=== PATIENT | female | born 1965 | race Caucasian/White ===

== ENCOUNTER → 2020-08-10 | Outpatient (CLI) | payer BC ==
[~2020-08-10] MED LIST: CELE200C PO; DESV100T PO; SIMV20TA18 PO; VALS1TAB28 PO; WARF7.5T45 PO
--- NOTE | 2020-08-16 12:09 | RAD ---
DATE: 08/10/2020 EXAM: MAMMO ROSSANA SCREENING BILATERAL HISTORY: Screening COMPARISON: 02/17/2019 This study was interpreted with the benefit of Computerized Aided Detection (CAD). Breast Density: The breast parenchyma shows scattered fibroglandular densities. Breast parenchyma level B. FINDINGS: There is a focal asymmetry in the subareolar left breast at approximately 3:00 suspicious for a dilated duct. There are bilateral benign calcifications. No suspicious mass or suspicious calcification either breast. No architectural distortion. IMPRESSION: Focal asymmetry in the subareolar left breast suspicious for dilated duct. Recommend spot compression CC and MLO views and ultrasound to further evaluate. BI-RADS CATEGORY: 0 INCOMPLETE: NEEDS ADDITIONAL IMAGING EVALUATION AND/OR PRIOR MAMMOGRAMS FOR COMPARISON. RECOMMENDED FOLLOW-UP: Spot compression CC and MLO views and ultrasound of the subareolar left breast focal asymmetry. PQRS compliance statement: Mammography is a sensitive method for finding small breast cancers, but it does not detect them all and is not a substitute for careful clinical examination. A negative mammogram does not negate a clinically suspicious finding and should not result in delay in biopsying a clinically suspicious abnormality. "Our facility is accredited by the [employer] Mammography Program." MTDD
== END ==
LOC: MAMMO 09:44
PROVIDERS: ATTEND Specialist
DX: Z12.31 Encounter for screening mammogram for malignant neoplasm of breast (principal)
CPT/HCPCS: 77063; 77067

== ENCOUNTER → 2020-08-28 | Outpatient (CLI) | payer BC ==
--- NOTE | 2020-08-28 18:05 | RAD ---
EXAMINATION: BREAST LEFT, DIGITAL DIAGNOSTIC LT, 08/28/2020 3:00 PM CLINICAL INDICATION: 55-year-old woman recalled from screening mammogram for abnormal mammogram. COMPARISON: Screening mammogram 08/10/2020 MAMMOGRAPHIC FINDINGS: The left breast contains scattered areas of fibroglandular density. The tubular focal asymmetry in the retroareolar region persists on spot compressions, although is less conspicuous. SONOGRAPHIC FINDINGS: Ultrasound of the retroareolar region of the left breast demonstrates a single anechoic tubular structure consistent with a dilated duct. There is no definite intraductal mass or debris in size. No blood flow. IMPRESSION: 1. Probably benign dilated duct in the left breast. 2. BI-RADS 3-probably benign 3. Recommend 6 month follow-up ultrasound to ensure stability. The patient will receive a reminder letter by mail when she is due for her next exam. Electronically signed by: Ammy Cortés MD (08/28/2020 6:02 PM) [id number]
== END ==
LOC: MAMMO 14:04
PROVIDERS: ATTEND Specialist
DX: R92.2 Inconclusive mammogram (principal)
CPT/HCPCS: 76641; 77065

== ENCOUNTER → 2021-06-19 | Outpatient (CLI) | payer BC | LOC: LAB 10:25 | PROVIDERS: ATTEND Specialist | DX: Z86.711 Personal history of pulmonary embolism (principal) | CPT/HCPCS: 36415; 85610 ==